=== PATIENT | male | born 1995 | race Caucasian/White ===

== ENCOUNTER 2018-10-29 18:19 | Emergency (ER) | payer OTHER, SELFPAY ==
[2018-10-29 18:21] VITALS: BP 126/81; PULSE 84; RESP 18; TEMP 36.2; O2SAT 98; BMI 37.3
[2018-10-29 18:31] VITALS: O2SAT 99
[2018-10-29] MEDS: predniSONE 20 MG Tablet 60 MG PO (19:40)
--- NOTE | 2018-10-29 19:40 | ED.VISSUMM ---
- ER Visit Summary Date of Service: 10/29/18 Chief Complaint: Inhaled fiberglass History of Present Illness: The patient is a 23 M who presents after accidentally inhaling fiberglass at work. Patient was blowing dust off of his equipment, covered his mouth with his shirt, and the resulting dust contained fiberglass. Patient's sure over his mouth did not prevent him from inhaling it. Afterwards he has had a coughing episode for 20 minutes. His chest and throat feel scratchy and irritated. He denies any other symptoms at this time. No history of asthma, COPD or other lung pathology. He is a former smoker. Physical Examination: Vital signs: afebrile, hemodynamically stable, no hypoxia on room air General: well nourished, well developed, in no distress Skin: warm, dry, no rash, no pallor HEENT: normocephalic and atraumatic; PERRL, EOMI, moist mucous membranes no oropharyngeal lesions or bleeding, no posterior erythema, uvula is midline Cardiovascular: regular rate and rhythm without murmurs, no peripheral edema, 2+ pulses all distal extremities Respiratory: No increased work of breathing, lungs are clear to auscultation bilaterally, no rales, rhonchi or wheezing, no stridor Abdominal: Abdomen is soft, nontender with normoactive bowel sounds, no guarding or rebound, no masses MSK: Moves all extremities, no deformities, normal strength Neuro: Awake and alert, oriented ?4. No facial droop, sensation and motor function intact and symmetric Test Results: Clinical Impression(s) from Imaging Studies Chest X-Ray 10/29/18 20:05 IMPRESSION: No acute cardiopulmonary findings. Negative for infiltrates, consolidation, atelectasis or pleural effusion. Normal cardiac size. Incidental right aortic arch. Electronically Signed: Phylicia Zapien MD at 20:29 EST , Service support , Medications Given Discontinued Medications Albuterol/Ipratropium (Duoneb) 3 ml INHALATION X1 ONE Stop: 10/29/18 19:28 Last Admin: 10/29/18 19:50 Dose: 3 ml Prednisone () 60 mg PO X1 ONE Stop: 10/29/18 19:28 Last Admin: 10/29/18 19:40 Dose: 60 mg Emergency Department Course and Treatment: Baseline chest x-ray was obtained and showed no acute abnormalities. Patient was given a DuoNeb and a dose of oral steroids. Patient felt much better after receiving the breathing treatment. He was offered a prescription for an inhaler and stated he already has one at home. He was given a prescription for a prednisone burst. Patient was given follow-up with a patient support partner for reevaluation, especially if he continues to have the lung discomfort. Patient discharged home with Worker's Comp. paperwork filled out. Treatment Plan: [] Disposition: [] Impression: Irritant inhalation, fiberglass inhalation This note was generated with [employer] dictation software. It may contain incorrect words, spelling, and punctuation that were not noted in review of the chart prior to signing ED Disposition - Plan for ED Patient: Disposition: Home or Assisted Living Chief Complaint: Occup Expose Instructions: Understanding Respiratory Hazards Prescriptions: RX: predniSONE tablet 60 mg PO DAILY #15 tab Referrals: Ken Cruz MD [STAFF PHYSICIAN] - 5-7 Days Care Physician,No Primary [Primary Care Provider] - Additional Instructions: Use your home inhaler as needed for wheezing and shortness of breath. Use the steroid daily for 5 days to help with any inflammation in your lungs. Please follow-up with Dr. Cruz, the patient support partner, for another evaluation in 1 week, especially if you are having cough, shortness of breath, chest pain or other complaints. If you have any worsening of your condition or any new concerning symptoms, please return immediately to the emergency department for another evaluation.
--- NOTE | 2018-10-29 19:44 | ED.DCSUM_ITS ---
- ER Visit Summary Date of Service: 10/29/18 Chief Complaint: Inhaled fiberglass History of Present Illness: The patient is a 23 M who presents after accidentally inhaling fiberglass at work. Patient was blowing dust off of his equipment, covered his mouth with his shirt, and the resulting dust contained f iberglass. Patient's sure over his mouth did not prevent him from inhaling it. Afterwards he has had a coughing episode for 20 minutes. His chest and throat feel scratchy and irritated. He denies any other symptoms at this time. No history of asthma, COPD or other lung pathology. He is a former smoker. Physical Examination: Vital signs: afebrile, hemodynamically stable, no hypoxia on room air General: well nourished, well developed, in no distress Skin: warm, dry, no rash, no pallor HEENT: normocephalic and atraumatic; PERRL, EOMI, moist mucous membranes no oropharyngeal lesions or bleeding, no posterior erythema, uvula is midline Cardiovascular: regular rate and rhythm without murmurs, no peripheral edema, 2+ pulses all distal extremities Respiratory: No increased work of breathing, lungs are clear to auscultation bilaterally, no rales, rhonchi or wheezing, no stridor Abdominal: Abdomen is soft, nontender with normoactive bowel sounds, no guarding or rebound, no masses MSK: Moves all extremities, no deformities, normal strength Neuro: Awake and alert, oriented ?4. No facial droop, sensation and motor function intact and symmetric Test Results: Clinical Impression(s) from Imaging Studies Chest X-Ray 10/29/18 20:05 IMPRESSION: No acute cardiopulmonary findings. Negative for infiltrates, consolidation, atelectasis or pleural effusion. Normal cardiac size. Incidental right aortic arch. Electronically Signed: Phylicia Zapien MD at 20:29 EST , Service support , Medications Given Discontinued Medications Albuterol/Ipratropium (Duoneb) 3 ml INHALATION X1 ONE Stop: 10/29/18 19:28 Last Admin: 10/29/18 19:50 Dose: 3 ml Prednisone () 60 mg PO X1 ONE Stop: 10/29/18 19:28 Last Admin: 10/29/18 19:40 Dose: 60 mg Emergency Department Course and Treatment: Baseline chest x-ray was obtained and showed no acute abnormalities. Patient was given a DuoNeb and a dose of oral steroids. Patient felt much better after receiving the breathing treatment. He was offered a prescription for an inhaler and stated he already has one at home. He was given a prescription for a prednisone burst. Patient was given follow- up with a district fire management officer for reevaluation, especially if he continues to have the lung discomfort. Patient discharged home with Worker's Comp. paperwork filled out. Treatment Plan: [] Disposition: [] Impression: Irritant inhalation, fiberglass inhalation This note was generated with [employer] dictation software. It may contain incorrect words, spelling, and punctuation that were not noted in review of the chart prior to signing ED Disposition - Plan for ED Patient: Disposition: Home or Assisted Living Chief Complaint: Occup Expose Instructions: Understanding Respiratory Hazards Prescriptions: RX: predniSONE tablet 60 mg PO DAILY #15 tab Referrals: Ken Cruz MD [STAFF PHYSICIAN] - 5-7 Days Care Physician,No Primary [Primary Care Provider] - Additional Instructions: Use your home inhaler as needed for wheezing and shortness of breath. Use the steroid daily for 5 days to help with any inflammation in your lungs. Please follow-up with Dr. Cruz, the district fire management officer, for another evaluation in 1 week, especially if you are having cough, shortness of breath, chest pain or other complaints. If you have any worsening of your condition or any new concerning symptoms, please return immediately to the emergency department for another evaluation.
[2018-10-29] MEDS: Ipratropium/Albuterol Sulfate 3 ML AMPUL.NEB INHALATION (19:50)
[2018-10-29 19:51] VITALS: PULSE 85; RESP 18
--- NOTE | 2018-10-29 20:05 | RAD_ITS ---
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 FINDINGS: The lungs are clear and expanded. There is no demonstrated pleural abnormality. Normal size heart. Normal mediastinum and sherin. Normal visualized pulmonary arteries. Right aortic arch. Normal visualized thoracic spine. Normal visualized ribs, clavicles, and shoulders. There is no demonstrated abnormality of the visualized soft tissue structures of the upper abdomen. RAD/Chest PA and Lateral IMPRESSION: No acute cardiopulmonary findings. Negative for infiltrates, consolidation, atelectasis or pleural effusion. Normal cardiac size. Incidental right aortic arch. Electronically Signed: Phylicia Zapien MD at 20:29 EST , Service support ,
[2018-10-29 22:24] VITALS: BP 124/82; PULSE 78; RESP 16; RESP 18; O2SAT 97
--- NOTE | 2018-10-29 22:27 | ED.DEP ---
ED Disposition - Plan for ED Patient: Disposition: Home or Assisted Living Chief Complaint: Occup Expose Instructions: Understanding Respiratory Hazards Prescriptions: predniSONE tablet 60 mg PO DAILY #15 tab Referrals: Care Physician,No Primary [Primary Care Provider] - Ken Cruz MD [STAFF PHYSICIAN] - 5-7 Days Additional Instructions: Use your home inhaler as needed for wheezing and shortness of breath. Use the steroid daily for 5 days to help with any inflammation in your lungs. Please follow-up with Dr. Cruz, the corporate manager, for another evaluation in 1 week, especially if you are having cough, shortness of breath, chest pain or other complaints. If you have any worsening of your condition or any new concerning symptoms, please return immediately to the emergency department for another evaluation.
--- OUTSIDE RECORDS SUMMARY | 2018-12-15 22:39 | XMS RPT_ITS ---
:1995 Author Organization [facility] Care Team Providers Name Role Phone Manuel Marinelli Admitting Unavailable Manuel Marinelli Attending Unavailable Antwon Chavez Primary Care Unavailable Kait Coker Attending Unavailable Primay Care Physicia, No Primary Care Unavailable PROBLEMS PROBLEMS No Problem Records FoundPROCEDURES PROCEDURES No Procedure Records FoundRESULTS RESULTS EMERGENCY DEPARTMENT Observed: 10/30/2018 Status: F Source: [place] SUMMARY 1:26 AM [facility] Medical Records Department [address] [facility] [place] [address] Emergency Department Summary 10/29/181939 MR#: [id number] Acct: [id number] Name: MANSOOR TORRES Rep #: [id number] : 1995 23 From: Kait Coker MD PCP: Care Physician, No Primary Status: DEP ER - ER Visit Summary Date of Service: 10/29/18 Chief Complaint: Inhaled fiberglass History of Present Illness: The patient is a 23 M who presents after accidentally inhaling fiberglass at work. Patient was blowing dust off of his equipment, covered his mouth with his shirt, and the resulting dust contained fiberglass. Patient's sure over his mouth did not prevent him from inhaling it. Afterwards he has had a coughing episode for 20 minutes. His chest and throat feel scratchy and irritated. He denies any other symptoms at this time. No history of asthma, COPD or other lung pathology. He is a former smoker. Physical Examination: Vital signs: afebrile, hemodynamically stable, no hypoxia on room air General: well nourished, well developed, in no distress Skin: warm, dry, no rash, no pallor HEENT: normocephalic and atraumatic; PERRL, EOMI, moist mucous membranes no oropharyngeal lesions or bleeding, no posterior erythema, uvula is midline Cardiovascular: regular rate and rhythm without murmurs, no peripheral edema, 2+ pulses all distal extremities Respiratory: No increased work of breathing, lungs are clear to auscultation bilaterally, no rales, rhonchi or wheezing, no stridor Abdominal: Abdomen is soft, nontender with normoactive bowel sounds, no guarding or rebound, no masses MSK: Moves all extremities, no deformities, normal strength Neuro: Awake and alert, oriented 4. No facial droop, sensation and motor function intact and symmetric Test Results: Clinical Impression(s) from Imaging Studies Chest X-Ray 10/29/18 20:05 IMPRESSION: No acute cardiopulmonary findings. Negative for infiltrates, consolidation, atelectasis or pleural effusion. Normal cardiac size. Incidental right aortic arch. Electronically Signed: Phylicia Zapien MD at 20:29 EST , Service support , Medications Given Discontinued Medications Albuterol/Ipratropium (Duoneb) 3 ml INHALATION X1 ONE Stop: 10/29/18 19:28 Last Admin: 10/29/18 19:50 Dose: 3 ml Prednisone () 60 mg PO X1 ONE Stop: 10/29/18 19:28 Last Admin: 10/29/18 19:40 Dose: 60 mg Emergency Department Course and Treatment: Baseline chest x-ray was obtained and showed no acute abnormalities. Patient was given a DuoNeb and a dose of oral steroids. Patient felt much better after receiving the breathing treatment. He was offered a prescription for an inhaler and stated he already has one at home. He was given a prescription for a prednisone burst. Patient was given follow-up with a plastic straightening roll operator for reevaluation, especially if he continues to have the lung discomfort. Patient discharged home with Worker's Comp. paperwork filled out. Treatment Plan: [] Disposition: [] Impression: Irritant inhalation, fiberglass inhalation This note was generated with [employer] software. It may contain incorrect words, spelling, and punctuation that were not noted in review of the chart prior to signing ED Disposition - Plan for ED Patient: Disposition: Home or Assisted Living Chief Complaint: Occup Expose Instructions: Understanding Respiratory Hazards Prescriptions: RX: predniSONE tablet 60 mg PO DAILY #15 tab Referrals: Ken Cruz MD [STAFF PHYSICIAN] - 5-7 Days Care Physician,No Primary [Primary Care Provider] - Additional Instructions: Use your home inhaler as needed for wheezing and shortness of breath. Use the steroid daily for 5 days to help with any inflammation in your lungs. Please follow-up with Dr. Cruz, the plastic straightening roll operator, for another evaluation in 1 week, especially if you are having cough, shortness of breath, chest pain or other complaints. If you have any worsening of your condition or any new concerning symptoms, please return immediately to the emergency department for another evaluation. What to do if you have Problems For any increased pain, shortness of breath, bleeding, nausea or vomiting, chest pain, or any unexpected problems, contact your Primary Care Provider. Call [facility] ([phone]) or report to the closest Emergency Room. Call 911 if necessary. 10/30/18 0126 <Electronically signed by Kait Coker MD> Date Kait Coker MD Cosigner Signature (If Indicated): Date CC: No Primary Care Physician DISCHARGE INSTRUCTION Observed: 10/30/2018 Status: F Source: [place] 12:31 AM [facility] Medical Records Department [address] [place] [address] Discharge Instruction 10/29/187 MR#: [id number] Acct: [id number] Name: MANSOOR TORRES Karen Rep #: [id number] : 1995 23 From: Kait Coker MD PCP: Care Physician, No Primary Status: DEP ER ED Disposition - Plan for ED Patient: Disposition: Home or Assisted Living Chief Complaint: Occup Expose Instructions: Understanding Respiratory Hazards Prescriptions: predniSONE tablet 60 mg PO DAILY #15 tab Referrals: Care Physician,No Primary [Primary Care Provider] - Ken Cruz MD [STAFF PHYSICIAN] - 5-7 Days Additional Instructions: Use your home inhaler as needed for wheezing and shortness of breath. Use the steroid daily for 5 days to help with any inflammation in your lungs. Please follow-up with Dr. Cruz, the plastic straightening roll operator, for another evaluation in 1 week, especially if you are having cough, shortness of breath, chest pain or other complaints. If you have any worsening of your condition or any new concerning symptoms, please return immediately to the emergency department for another evaluation. What to do if you have Problems For any increased pain, shortness of breath, bleeding, nausea or vomiting, chest pain, or any unexpected problems, contact your Primary Care Provider. Call [facility] ([phone]) or report to the closest Emergency Room. Call 911 if necessary. 10/30/18 0031 <Electronically signed by Kait Coker MD> Date Kait Coker MD Cosigner Signature (If Indicated): Date CC: No Primary Care Physician CHEST PA AND LATERAL Observed: 10/29/2018 Status: F Source: [place] 7:27 PM [facility] Imaging Services [address] [place] [address] Chest PA and Lateral MR#: [id number] Acct: [id number] Name: MELISSAMANSOOR Karen Rep #: [id number] : 1995 M 23 From: Phylicia Zapien MD PCP: Care Physician, No Primary Status: [facility] ER Study: Chest PA and Lateral Date of Exam: 10/29/18 Exam# [id number] Ordering Dr: Kait Coker MD 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 FINDINGS: The lungs are clear and expanded. There is no demonstrated pleural abnormality. Normal size heart. Normal mediastinum and sherin. Normal visualized pulmonary arteries. Right aortic arch. Normal visualized thoracic spine. Normal visualized ribs, clavicles, and shoulders. There is no demonstrated abnormality of the visualized soft tissue structures of the upper abdomen. RAD/Chest PA and Lateral IMPRESSION: No acute cardiopulmonary findings. Negative for infiltrates, consolidation, atelectasis or pleural effusion. Normal cardiac size. Incidental right aortic arch. Electronically Signed: Phylicia Zapien MD at 20:29 EST , Service support , CC: No Primary Care Physician; Kait Coker MD Sand Screener: Signed ALLERGIES ALLERGIES DATE TYPE / CODE NAME / CODE REACTION SEVERITY SOURCE 10/29/2018 Drug No Known Unknown [facility] Allergy/416 Allergies/[id number] [facility] 696209(SNOM 0388(RXNORM) Repository ED CT) Drug/850783 No Known Jehovah'S Witness 003(SNOMED Allergies [facility] CT) System Repository ENCOUNTERS ENCOUNTERS ADMIT/DISCHARGE ACCOUNT NUMBER ADMITTING ENCOUNTER LOCATION SOURCE CLASS 10/29/2018/10/29/20 [id number] Emergency [place] [address] 18 [facility] ding:ED Repository 03/15/2018/03/15/20 [id number] Saurav Marinelli [facility] 18 Manuel cantu:[facility] Repository PAYERS PAYERS ENCOUNTER GUARANTOR PAYER SUBSCRIBER SOURCE 10/29/2018 MANSOOR Jones Primary MANSOOR Moses [id number] Insurance:SELF INS TOVEYDOB: [facility] Number: [id number] [place] [id number] Repository [place], [place] Date:[id number] [id number]: [phone]) [facility] [phone] () [facility] [address] [address], [place] [address]UG: 10/29/2018 Secondary NOT GIVENUNK [place] Insurance:SELF PAY [facility] Number: Effective Repository Date:2018-10-29 03/15/2018 MANSOOR Jones Primary CLYDE Jesus Jehovah'S Witness TOVEYDOB: Insurance:1500 TURNERDOB: [facility] [id number] [facility] Number: [id number] System [place] Effective [place] Repository [place], [place] Date:2018-03-15 - [place], [place] [id number]: [id number]: Name:CD:[id number] O () [address], [place] ()Tel: [phone]: () [phone]
== END 2018-10-29 23:48 | disposition home or self-care (01) ==
PROVIDERS: Emergency Provider Emergency Medicine
DX: T65.831A Toxic effect of fiberglass, accidental (unintentional), initial encounter (principal); R05 Cough; Y92.9 Unspecified place or not applicable; Z87.891 Personal history of nicotine dependence
CPT/HCPCS: 71046; 94640; 99283

== ENCOUNTER 2018-12-30 14:43 | Emergency (ER) | payer BC, SELFPAY ==
[2018-12-30 14:45] VITALS: BP 136/81; PULSE 94; RESP 18; TEMP 36.6; O2SAT 98; BMI 36.8
--- NOTE | 2018-12-30 15:11 | RAD_ITS ---
STUDY: X-RAY CHEST REASON FOR EXAM: Male, 23 years old. Cough. Hematemesis. TECHNIQUE: PA and lateral views of the chest. COMPARISON: Comparison is made with prior study dated October 29, 2018. FINDINGS: The lungs are clear and expanded. Scattered calcified granulomas. There is no demonstrated pleural abnormality. Normal size heart. Normal mediastinum and sherin. Normal visualized pulmonary arteries. Right sided aortic arch Normal visualized thoracic spine. Normal visualized ribs, clavicles, and shoulders. There is no demonstrated abnormality of the visualized soft tissue structures of the upper abdomen. RAD/Chest PA and Lateral IMPRESSION: Normal x-ray examination of the chest. Incidental note is made of a right-sided aortic arch. Electronically Signed: Josias Tapia MD at 15:27 EST , Service support ,
--- NOTE | 2018-12-30 15:14 | ED.DCSUM_ITS ---
- ER Visit Summary Date of Service: 12/30/18 Chief Complaint: [Vomiting blood] History of Present Illness: The patient is a 23 M [presents to the emergency department with complaint of an episode of vomiting blood today. Patient states that he was on a couch and was having a drink which then caused him to cough several times. Patient then had an episode of forceful retching and emesis that he noted was bright red blood. Patient had a couple more emesis which then just was bile-like in color. This occurred about an hour ago. Patient's had no further vomiting since. Patient states that often times when he is drinking water he will develop a tickle and start to cough. Patient denies recent travel or surgery. Denies any fever. He denies any chest pain or shortness of breath. Patient does feel slightly lightheaded. Patient denies any abdominal pain. He denies any black or tarry stool. Patient does not have a history of stomach ulcers and he has not been using NSAIDs excessively.] Physical Examination: [HEENT-PERRLA, EOMI. Cranial nerves II through XII grossly intact. TMs clear. Mucous membranes moist. No adenopathy. Cardiovascular-regular rate and rhythm without murmur or ectopy Lungs-clear to auscultation, chest wall stable without crepitus or subcu e mphysema Abdomen-normoactive bowel sounds, soft, nontender, no rebound or rigidity, no peritoneal signs. Extremities-intact ?4, normal range of motion, normal pulses, atraumatic] Test Results: [Chest x-ray obtained was normal without evidence for Borhave's syndrome. Patient was noted to have a right-sided aortic knob. Orthostatic vital signs were negative] Emergency Department Course and Treatment: [] Treatment Plan: [Patient advised to follow-up with primary care physician as needed. Patient advised to return if persistent bleeding difficulty breathing or condition should worsen anyway.] Disposition: [Discharged home in stable condition] Impression: [Upper GI bleed-suspect Domitila-Johns tear-resolved] This note was generated with [employer] dictation software. It may contain incorrect words, spelling, and punctuation that were not noted in review of the chart prior to signing ED Disposition - Plan for ED Patient: Referrals: Care Physician,No Primary [Primary Care Provider] -
[2018-12-30 15:26] VITALS: BP 122/86; BP 126/75; BP 141/88; PULSE 101; PULSE 93
--- NOTE | 2018-12-30 15:37 | ED.DEP ---
ED Disposition - Plan for ED Patient: Instructions: Domitila-Andreas Tear Referrals: Care Physician,No Primary [Primary Care Provider] - Jan Mathew MD [STAFF PHYSICIAN] - As Needed
[2018-12-30 15:45] VITALS: RESP 14
== END 2018-12-30 15:46 | disposition home or self-care (01) ==
LOC: ED 15:23
PROVIDERS: Emergency Provider Emergency Medicine
DX: K92.2 Gastrointestinal hemorrhage, unspecified (principal)
CPT/HCPCS: 71046; 99282